=== PATIENT | male | born 1960 ===

== ENCOUNTER 2023-08-21 11:24 | Day surgery (SDC) | payer BC ==
[2023-08-21] MEDS ORDERED: ROCURONIUM 50 MG/5 ML VIAL IVP ONE (11:25)
[2023-08-21] MEDS ORDERED: fentaNYL 100 MCG/2 ML VIAL IVP ONE (11:25)
[2023-08-21] MEDS ORDERED: SUCCINYLCHOLINE 200 MG/10 ML VIAL IVP ONE (11:25)
[2023-08-21] MEDS ORDERED: ONDANSETRON 4 MG/2 ML VIAL IVP ONE (11:25)
[2023-08-21] MEDS ORDERED: ceFAZolin (2G) 2 GM in SODIUM CHLORIDE 0.9% MINIBAG 100 ML IV ONE (11:25)
[2023-08-21] MEDS ORDERED: MIDAZOLAM 2 MG/2 ML VIAL IVP ONE (11:25)
[2023-08-21] MEDS ORDERED: DEXAMETHASONE 4 MG/ML VIAL IVP ONE (11:25)
[2023-08-21] MEDS ORDERED: PROPOFOL 500 MG/50 ML 500 MG/50 ML VIAL IV ONE (11:25)
[2023-08-21] MEDS ORDERED: LACTATED RINGERS 1,000 ML IV ONE (11:42)
[2023-08-21] MEDS ORDERED: NALOXONE 0.4 MG/ML VIAL IVP PRN (12:58)
[2023-08-21] MEDS ORDERED: METOCLOPRAMIDE 10 MG/2 ML VIAL IVP PRN (12:58)
[2023-08-21] MEDS ORDERED: MORPHINE 2 MG/ML CARPUJECT IVP PRN (12:58)
[2023-08-21] MEDS ORDERED: ATROPINE ABBOJECT 1 MG/10 ML SYRINGE IVP PRN (12:58)
[2023-08-21] MEDS ORDERED: HYDROmorphone 0.5 MG/0.5 ML SYRINGE IVP PRN (12:58)
[2023-08-21] MEDS ORDERED: ePHEDrine 50 MG/ML VIAL IVP PRN (12:58)
[2023-08-21] MEDS ORDERED: ONDANSETRON 4 MG/2 ML VIAL IVP PRN (12:58)
[2023-08-21] MEDS ORDERED: fentaNYL 100 MCG/2 ML VIAL IVP PRN (12:58)
--- NOTE | 2023-08-21 12:58 | ANESTHESIA ---
Pre-Anesthesia VS, & Labs - Diagnosis umbilical hernia - Procedure umbilical hernia repair Vital Signs: Temp Pulse Resp BP Pulse Ox O2 Flow Rate 36.6 C 75 12 136/96 H 99 08/21/23 11:43 08/21/23 11:43 08/21/23 11:43 08/21/23 11:43 08/21/23 11:43 Height: 6 ft Weight (kg): 110 kg Body Mass Index: 32.8 BMI Classification: Obese - NPO >8 hours Home Medications and Allergies Home Medications: Ambulatory Orders No Known Home Medications 08/19/23 No Known Home Medications 08/19/23 Allergies/Adverse Reactions: Allergies Allergy/AdvReac Type Severity Reaction Status Date / Time No Known Drug Allergies Allergy Verified 08/21/23 11:55 Anes History & Medical History - Anesthetic History Anesthesia Complications: reports: No previous complications Family history of Anesthesia Complications: Denies Family history of Malignant Hyperthermia: Denies - Medical History Cardiovascular: reports: None Pulmonary: reports: None Gastrointestinal: reports: Colon polyps Urinary: reports: None Musculoskeletal: reports: None Endocrine/Autoimmune: reports: None Skin: reports: None Psychosocial: reports: No issues indicated History of Cancer?: No - Surgical History General: reports: Colonoscopy Exam General: Alert, Oriented x3, Cooperative Dental: WNL Mouth Openin Fingerbreadth Neck Mobility: Normal Mallampati classification: II Thyromental Distance: 4-6 cm Respiratory: Lungs clear Cardiovascular: Regular rate Plan Anesthesia Type: General Consent for Procedure(s) Verified and Reviewed: Yes Code Status: Attempt Resuscitation ASA classification: 1-Healthy patient Is this case an emergency?: No
[2023-08-21] MEDS ORDERED: LACTATED RINGERS 1,000 ML IV SCH (13:00)
--- NOTE | 2023-08-21 13:37 | HISTORY & PHYSICAL EXAMINATION ---
Chief Complaint - Chief Complaint Chief Complaint: painful hernia umbilical area History of Present Illness - History Obtained From Records Reviewed: yes History obtained from: pt Exam Limitations: none - History of Present Illness HPI Comment/Other: umbilical hernia for years. getting worse History - Past Medical History Cardiovascular: reports: None Respiratory: reports: None Endocrine/Autoimmune: reports: None GI: reports: Colon polyps : reports: None HEENT: reports: Chronic vision loss, Chronic hearing loss Psych: reports: None Musculoskeletal: reports: None Derm: reports: None MRSA Hx?: No - Past Surgical History General: reports: Colonoscopy Meds/Allgy - Home Medications Home Medications: Ambulatory Orders Medication Instructions Recorded Confirmed No Known Home Medications 08/19/23 08/21/23 - Allergies Allergies/Adverse Reactions: Allergies Allergy/AdvReac Type Severity Reaction Status Date / Time No Known Drug Allergies Allergy Verified 08/21/23 11:55 Review of Systems - Other Findings Other Findings: 10 pt ros as above otherwise unremarkable Exam - Vital Signs Vital Signs: Vital Signs x48h Temp Pulse Resp BP Pulse Ox 08/21/23 11:43 36.6 C 75 12 136/96 H 99 - Physical Exam General Appearance: positive: No acute distress, Alert Eyes Bilateral: positive: PERRL, No scleral icterus ENT: positive: No signs of dehydration Neck: positive: No JVD Respiratory: positive: Breath sounds nml Cardiovascular: positive: Regular rate & rhythm Abdomen: positive: Other (nearly 4 cm umbilical hernia bulge) Neurologic/Psychiatric: positive: Oriented x3 Conclusion/Plan - Problem List (1) Umbilical hernia Conclusion/Plan: plan open repair with mesh. parq held and consent obtained
[2023-08-21] MEDS ORDERED: BUPIVACAINE 0.25% PF 30 ML VIAL SUBQ ONE ×2 (14:04)
[2023-08-21] MEDS ORDERED: SUGAMMADEX 200 MG/2 ML VIAL IVP ONE (14:46)
[2023-08-21] MEDS ORDERED: LIDOCAINE-PF 2% 10 ML AMP SUBQ ONE (14:49)
[2023-08-21] MEDS ORDERED: HYDROcod/ACETAM 5/325 MG TABLET PO PRN (15:04)
[2023-08-21] MEDS ORDERED: LACTATED RINGERS 800 ML IV ONE (15:05)
--- NOTE | 2023-08-21 15:09 | ANESTHESIA POST OP EVALUATION ---
Anesthesia Post Eval - Post Anesthesia Eval Vitals: Last Vital Signs Temp 36 C L 08/21/23 15:00 Pulse 73 08/21/23 15:00 Resp 16 08/21/23 15:00 BP 129/83 H 08/21/23 15:00 Pulse Ox 100 08/21/23 15:00 O2 Flow Rate CV Function Including HR & BP: Stable Pain Control: Satisfactory Nausea & Vomiting: Negative Mental Status: Baseline Respiratory Status: Airway Patent Hydration Status: Satisfactory Anesthesia Complications: None
--- NOTE | 2023-08-21 15:13 | OPERATIVE REPORT ---
Operative Report - General Procedure Date: 08/21/23 Planned Procedure: open umbilical hernia repair with mesh and excision umbilical skin Pre-Op Diagnosis: 4 cm umbilical hernia Procedure Performed: open repair umbilical hernia with mesh Post Op Diagnosis: 3 x 5 cm umbilcal hernia - Procedure Note Primary Surgeon: iam rosales Anesthesia Technique: General ET tube, Local Pathology: skin and sac removed. not sent Estimated Blood Loss (mL): 2 Drain/Tube Type: Other (none) Indications: painful hernia bulge Findings: 2 x 4 in mesh preperitoneal Complications: none - Other Other Information/Narrative: The patient was prepped identified brought to the operating room and placed in supine position. Sequential compression devices were placed. General endo tracheal anesthesia was induced. He was prepped and draped in a sterile fashion and given preoperative antibiotics. He had a 4 cm hernia bulge with stretched out and excoriated umbilical skin. An elliptical incision was made removing the umbilical skin. Dissection proceeded down to the hernia sac. The hernia sac was directly underneath the stretched out skin. Hernia sac was mobilized away from surrounding subcutaneous tissue down to the fascia. The hernia sac was released from the fascial defect edge. Incision was made approximately 2 cm anterior to the fascial defect edge and umbilical skin and redundant hernia sac removed. Omentum was present. The omentum was reduced. The peritoneum was then closed with a running 3-0 Vicryl suture. Local anesthetic was given. The preperitoneal space was then developed. Hemostasis was assured. Approximately 4 inch tall by 2 inch wide polypropylene mesh was placed preperitoneal and secured with over 10 interrupted 0 Tycron sutures. Fascia was closed over the mesh with additional interrupted 0 Tycron sutures. The mesh lay in good position without tension. There were no apparent complications. Hemostasis was assured. Subcutaneous tissue was closed with interrupted 2-0 Vicryl suture. Buried interrupted subdermal 3-0 Vicryl sutures were then placed. Skin was closed with a running 4-0 Monocryl subcuticular suture. Steri-Strips and dressing were applied. He tolerated the procedure well was awakened and brought to recovery in good condition.
[2023-08-21 16:14] VITALS: BP 135/90; O2SAT 99
[2023-08-21] MEDS ORDERED: HYDROcod/ACETAM 5/325 MG TABLET ONE (16:45)
== END 2023-08-21 11:25 | disposition home or self-care (01) ==
LOC: SDS 11:24
PROVIDERS: ATTEND Surgery
DX: K42.9 Umbilical hernia without obstruction or gangrene (principal); E66.9 Obesity, unspecified; Z68.32 Body mass index [BMI] 32.0-32.9, adult
CPT/HCPCS: 49593; A9270; C1781; J0330; J7120